=== PATIENT | male | born 1970 | race American Indian/Alaskan Native ===

== ENCOUNTER 2016-09-21 13:46 | Emergency (ER) | payer SELFPAY ==
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
[2016-09-21] MEDS ORDERED: TORADOL IM ONE (18:26)
[2016-09-21 19:34] VITALS: BP 112/71
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
== END 2016-09-21 19:45 | disposition home or self-care (01) ==
LOC: ED 13:46
DX: S22.32XA Fracture of one rib, left side, initial encounter for closed fracture (principal); F17.200 Nicotine dependence, unspecified, uncomplicated; V49.49XA Driver injured in collision with other motor vehicles in traffic accident, initial encounter; Y92.488 Other paved roadways as the place of occurrence of the external cause; Y93.89 Activity, other specified; Y99.8 Other external cause status
CPT/HCPCS: 71010; 71100; 96372; 99283; J1885

== ENCOUNTER 2018-09-26 19:14 | Emergency (ER) | payer OTHER ==
[2018-09-26] MEDS ORDERED: IBUPROFEN PO ONE ×2 (19:34→19:38)
--- NOTE | 2018-09-26 19:36 | Emergency Department Report ---
Chief Complaint: Dental/Oral Stated Complaint: TOOTHACHE PAIN & SWOLLEN Time Seen by Provider: 09/26/18 19:30 - HPI History of Present Illness: This is a 47 y.o. male that presents with left sided facial swelling and dental pain that started last night. Patient states when he woke up this morning the left side of face was swollen. Denies difficulty swallowing, drooling, hoarseness. - Exam Vital Signs: Vital Signs 09/26/18 19:30 Temperature 98.1 F Pulse Rate 76 Respiratory 18 Rate Blood Pressure 135/91 O2 Sat by Pulse 97 Oximetry MSE screening note: Focused history and physical exam performed. Due to findings the following was ordered: Given ibuprofen 600 mg po ED Disposition for MSE Condition: Stable
--- NOTE | 2018-09-26 22:28 | Emergency Department Report ---
ED ENT HPI - General Chief complaint: Dental/Oral Stated complaint: TOOTHACHE PAIN & SWOLLEN Time Seen by Provider: 09/26/18 19:30 Source: patient Mode of arrival: Ambulatory Limitations: No Limitations - History of Present Illness Initial comments: This is a 47 y.o. male that presents with left sided facial swelling and dental pain that started last night. Patient states when he woke up this morning the left side of face was swollen. Denies difficulty swallowing, drooling, hoarseness. pt is tolerating po intake there is no throat or ear pain MD complaint: tooth pain Onset/Timin -: unknown (recurring problem ) Location: tooth # (22) Severity: moderate Severity scale (0 -10): 5 Quality: aching Consistency: constant Improves with: none Worsens with: other (hot and cold stimuli, ) Context- Dental: history of dental caries, poor dental care Associated Symptoms: gum swelling, toothache. denies: sore throat, tinnitus - Related Data Previous Rx's Medication Instructions Recorded Last Taken Type HYDROcodone/APAP 7.5-325 [Anselmo 1 each PO Q8HR PRN #8 tablet 09/21/16 Unknown Rx 7.5/325] Acetaminophen/Codeine [Tylenol 1 tab PO Q6H PRN #12 tab 03/09/18 Unknown Rx /Codeine # 3 tab] Amoxicillin/K Clav Tab [Augmentin 1 tab PO Q12HR #20 tab 03/09/18 Unknown Rx 875 mg] Chlorhexidine Mouthwash [Peridex] 15 ml MM BID #1 bottle 03/09/18 Unknown Rx Amoxicillin [Trimox CAP] 500 mg PO Q8H 10 Days #30 capsule 09/26/18 Unknown Rx Chlorhexidine Mouthwash [Peridex] 15 ml MM BID #1 bottle 09/26/18 Unknown Rx Ciprofloxacin HCl [Ciprofloxacin 500 mg PO BID 10 Days #20 tab 09/26/18 Unknown Rx TAB] Ibuprofen [Motrin 800 MG tab] 800 mg PO Q8HR PRN #30 tablet 09/26/18 Unknown Rx Allergies Allergy/AdvReac Type Severity Reaction Status Date / Time No Known Allergies Allergy Verified 03/09/18 15:50 ED Dental HPI - General Chief complaint: Dental/Oral Stated complaint: TOOTHACHE PAIN & SWOLLEN Time Seen by Provider: 09/26/18 19:30 Source: patient Mode of arrival: Ambulatory Limitations: No Limitations - Related Data Previous Rx's Medication Instructions Recorded Last Taken Type HYDROcodone/APAP 7.5-325 [Anselmo 1 each PO Q8HR PRN #8 tablet 09/21/16 Unknown Rx 7.5/325] Acetaminophen/Codeine [Tylenol 1 tab PO Q6H PRN #12 tab 03/09/18 Unknown Rx /Codeine # 3 tab] Amoxicillin/K Clav Tab [Augmentin 1 tab PO Q12HR #20 tab 03/09/18 Unknown Rx 875 mg] Chlorhexidine Mouthwash [Peridex] 15 ml MM BID #1 bottle 03/09/18 Unknown Rx Amoxicillin [Trimox CAP] 500 mg PO Q8H 10 Days #30 capsule 09/26/18 Unknown Rx Chlorhexidine Mouthwash [Peridex] 15 ml MM BID #1 bottle 09/26/18 Unknown Rx Ciprofloxacin HCl [Ciprofloxacin 500 mg PO BID 10 Days #20 tab 09/26/18 Unknown Rx TAB] Ibuprofen [Motrin 800 MG tab] 800 mg PO Q8HR PRN #30 tablet 09/26/18 Unknown Rx Allergies Allergy/AdvReac Type Severity Reaction Status Date / Time No Known Allergies Allergy Verified 03/09/18 15:50 ED Review of Systems ROS: Stated complaint: TOOTHACHE PAIN & SWOLLEN Other details as noted in HPI Constitutional: denies: chills, fever Eyes: denies: eye pain, eye discharge, vision change ENT: dental pain Respiratory: denies: cough, shortness of breath, wheezing Cardiovascular: as per HPI Endocrine: no symptoms reported Gastrointestinal: as per HPI Genitourinary: denies: urgency, dysuria Musculoskeletal: denies: back pain, joint swelling, arthralgia Skin: denies: rash, lesions Neurological: denies: headache, weakness, paresthesias Psychiatric: denies: anxiety, depression Hematological/Lymphatic: denies: easy bleeding, easy bruising ED Past Medical Hx - Past Medical History Previous Medical History?: No - Surgical History Past Surgical History?: Yes Additional Surgical History: neck surgery - Social History Smoking Status: Current Every Day Smoker Substance Use Type: Alcohol - Medications Home Medications: Home Medications Medication Instructions Recorded Confirmed Last Taken Type HYDROcodone/APAP 7.5-325 [Anselmo 1 each PO Q8HR PRN #8 tablet 09/21/16 Unknown Rx 7.5/325] Acetaminophen/Codeine [Tylenol 1 tab PO Q6H PRN #12 tab 03/09/18 Unknown Rx /Codeine # 3 tab] Amoxicillin/K Clav Tab [Augmentin 1 tab PO Q12HR #20 tab 03/09/18 Unknown Rx 875 mg] Chlorhexidine Mouthwash [Peridex] 15 ml MM BID #1 bottle 03/09/18 Unknown Rx Amoxicillin [Trimox CAP] 500 mg PO Q8H 10 Days #30 capsule 09/26/18 Unknown Rx Chlorhexidine Mouthwash [Peridex] 15 ml MM BID #1 bottle 09/26/18 Unknown Rx Ciprofloxacin HCl [Ciprofloxacin 500 mg PO BID 10 Days #20 tab 09/26/18 Unknown Rx TAB] Ibuprofen [Motrin 800 MG tab] 800 mg PO Q8HR PRN #30 tablet 09/26/18 Unknown Rx ED Physical Exam - General Limitations: No Limitations General appearance: alert, in no apparent distress - Head Head exam: Present: atraumatic, normocephalic - Eye Eye exam: Present: normal appearance, PERRL, EOMI - ENT ENT exam: Present: mucous membranes moist, TM's normal bilaterally, normal external ear exam - Expanded ENT Exam Expanded Ear exam: Present: normal external inspection Mouth exam: Absent: trismus Teeth exam: Present: dental caries (multiple ), fractured tooth #, dental tenderness # (22) Throat exam: Positive: normal inspection, other (uvula midline no stridor ). Negative: tonsillar erythema, tonsillomegaly, tonsillar exudate, R peritonsillar mass, L peritonsillar mass - Neck Neck exam: Present: normal inspection, full ROM. Absent: tenderness, meningismus, lymphadenopathy, thyromegaly - Respiratory Respiratory exam: Present: normal lung sounds bilaterally. Absent: respiratory distress, wheezes, stridor, chest wall tenderness - Cardiovascular Cardiovascular Exam: Present: regular rate, normal rhythm, normal heart sounds. Absent: systolic murmur, diastolic murmur, rubs, gallop - GI/Abdominal GI/Abdominal exam: Present: soft, normal bowel sounds. Absent: distended, tenderness, guarding, rebound, rigid, bruit - Rectal Rectal exam: Present: deferred - Extremities Exam Extremities exam: Present: normal inspection, full ROM, normal capillary refill. Absent: tenderness - Back Exam Back exam: Present: normal inspection, full ROM. Absent: rash noted - Neurological Exam Neurological exam: Present: alert, oriented X3 - Psychiatric Psychiatric exam: Present: normal affect - Skin Skin exam: Present: warm, dry, intact, normal color. Absent: rash ED Course Vital Signs 09/26/18 19:30 Temperature 98.1 F Pulse Rate 76 Respiratory 18 Rate Blood Pressure 135/91 O2 Sat by Pulse 97 Oximetry ED Medical Decision Making - Medical Decision Making Dx dental carries no focal abscess mild gum swelling and erythema multiple dental carries plan amoxicillin , peridex, ultram, follow up with dentist given referral to [facility] will follow up tomorrow. tp verbalized agreement understanding of same. , pt now advises that he stepped on kadie nail yesterday, wearing tennis shoes, pt had last tetanus unkown, plan : for cipro po x 10 days, puncture wound is minor no erythema no swelling pt is ambulatory with steady gait at this time Critical care attestation.: If time is entered above; I have spent that time in minutes in the direct care of this critically ill patient, excluding procedure time. ED Disposition Clinical Impression: Infected dental carries Puncture wound of foot, left Qualifiers: Encounter type: initial encounter Qualified Code(s): S91.332A - Puncture wound without foreign body, left foot, initial encounter Disposition: TO HOME OR SELFCARE Is pt being admited?: No Does the pt Need Aspirin: No Condition: Stable Instructions: Puncture Wound (ED), Dental Caries (ED), Toothache (ED) Prescriptions: Ciprofloxacin HCl [Ciprofloxacin TAB] 500 mg PO BID 10 Days #20 tab Ibuprofen [Motrin 800 MG tab] 800 mg PO Q8HR PRN #30 tablet PRN Reason: pain Chlorhexidine Mouthwash [Peridex] 15 ml MM BID #1 bottle Amoxicillin [Trimox CAP] 500 mg PO Q8H 10 Days #30 capsule Referrals: [facility] [Outside] - 3-5 Days Forms: Work/School Release Form(ED) Time of Disposition: 22:41
[2018-09-26] MEDS ORDERED: BOOSTRIX IM ONE (22:32)
[2018-09-26] MEDS ORDERED: TYLENOL #3 PO ONE (22:38)
[2018-09-26] MEDS ORDERED: TYLENOL #3 ONE (22:41)
[2018-09-26 23:06] VITALS: BP 123/77
== END 2018-09-26 22:55 | disposition home or self-care (01) ==
LOC: ED 19:14
DX: S91.332A Puncture wound without foreign body, left foot, initial encounter (principal); K02.9 Dental caries, unspecified; F17.200 Nicotine dependence, unspecified, uncomplicated; Z98.890 Other specified postprocedural states; X58.XXXA Exposure to other specified factors, initial encounter; Y93.89 Activity, other specified; Y92.89 Other specified places as the place of occurrence of the external cause; Y99.8 Other external cause status
CPT/HCPCS: 90471; 90715

== ENCOUNTER 2019-01-14 13:09 | Emergency (ER) | payer SELFPAY ==
--- NOTE | 2019-01-14 13:38 | Event Note ---
ED Screening Note Date of service: 01/14/19 Time: 13:37 ED Screening Note: This is a 48 y.o. M. that presents to the ER with left lower side dental pain #22 and hematochezia x 2. Patient states the tooth broke a few months ago and he didn't follow up with dentist. This initial assessment/diagnostic orders/clinical plan/treatment(s) is/are subject to change based on patients health status, clinical progression and re- assessment by fellow clinical providers in the ED. Further treatment and workup at subsequent clinical providers discretion. Patient/guardian urged not to elope from the ED as their condition may be serious if not clinically assessed and managed. Initial orders include: ACC for further evaluation Occult stool
[2019-01-14 13:39] VITALS: BP 113/56
--- NOTE | 2019-01-14 15:21 | Emergency Department Report ---
Chief Complaint: Dental/Oral Stated Complaint: LFT SIDE TOOTHACHE/SWELLING Time Seen by Provider: 01/14/19 13:32 - HPI History of Present Illness: Mr. Holman is a 48-year-old male who presents with tooth fracture and dental caries. He concern for infection. He was told by a dentist that he advised prior to treatment. On exam there is a evidence of dental decay and fracture without indication of infection. He also has had mild rectal bleeding which has resolved. Medical screening exam performed. He does not have an acute emergent condition which needs further care. I strongly recommended evaluation at urgent care center for further treatment. - Exam Vital Signs: Vital Signs 01/14/19 13:35 Temperature 98.9 F Pulse Rate 58 L Respiratory 16 Rate Blood Pressure 113/56 O2 Sat by Pulse 97 Oximetry MSE screening note: Focused history and physical exam performed. Due to findings the following was ordered: ED Disposition for MSE Clinical Impression: Encounter for medical screening examination Disposition: MED SCREENING EXAM-LEFT Condition: Stable Referrals: PRIMARY CARE, [Primary Care Provider] - 3-5 Days
== END 2019-01-14 15:30 | disposition left against medical advice (07) ==
LOC: ED 13:09
DX: K08.89 Other specified disorders of teeth and supporting structures (principal); Z53.21 Procedure and treatment not carried out due to patient leaving prior to being seen by health care provider